=== PATIENT | male | born 1975 | race African-American/Black ===

== ENCOUNTER 2017-04-08 03:37 | Emergency (ER) | payer MEDICAID ==
[~2017-04-08] VITALS: Ht 182.9 cm; Wt 72.6 kg
[~2017-04-08 03:37] MED LIST: ACE325RS PR; ASCO500T11 PO; BACL20TA PO; BISA10SU45 RE; DOCU-94 PO; GABA600T PO; NOR10T PO; RANITAB8 PO; TOLT2TAB7 OR; ZINC220T3 PO; [UNRECOGNIZED DRUG - CODE] IV
[2017-04-08] MEDS ORDERED: SODIUM CHLORIDE 0.9% 1,000 ML IV ONE (07:25)
[2017-04-08] MEDS ORDERED: METOCLOPRAMIDE HCL 5MG/ml INJ 2ml VIAL IV ONE (07:30)
[2017-04-08] MEDS ORDERED: DIAZEPAM 5 MG/ML 2ML SYRG IV ONE (07:30)
[2017-04-08] MEDS ORDERED: KETOROLAC TROMETH 30 MG/ML 1ML VIAL IV ONE (07:30)
[2017-04-08 07:45] LABS: Basophils # (auto) 0.1 uL; Basophils % (auto) 1.7 % (0.0-2.0); CONDITION Y; Eosinophils # (auto) 0 uL; Eosinophils % (auto) 0.2 % (0.0-7.0); Hematocrit 43.6 % (41.0-53.0); Hemoglobin 14.6 g/dL (13.5-17.5); Lymphocytes % (auto) 26.7 % (10.0-50.0); Mean Corpuscular Hemoglobin 31.1 pg (28.0-32.0); Mean Corpuscular Hgb Conc. 33.5 g/dL (32.0-36.0); Mean Corpuscular Volume 92.7 fL (80.0-100.0); Mean Platelet Volume 9.4 fL (7.4-10.4); Monocytes # (auto) 0.6 uL; Monocytes % (auto) 7.3 % (0.0-12.0); Neutrophils # (auto) 4.9 uL; Neutrophils % (auto) 64.1 % (37.0-80.0); Platelet Count (auto) 249 10^3/uL (140-450); Red Cell Distribution Width 15.5 % (11.6-16.0); White Blood Cell 7.7 10^3/uL (4.4-10.8)
[2017-04-08 07:52] LABS: BUN/Creatinine Ratio 15.8; Calcium 8.8 mg/dL (8.5-10.1)
[2017-04-08 07:54] LABS: Bilirubin, Total 0.3 mg/dL (0.2-1.0); Total Protein 8.1 g/dL (6.4-8.2)
[2017-04-08 09:26] LABS: INR 1.05 (0.9-1.15); Prothrombin Time 11.4 sec (9.37-12.3)
[2017-04-08] MEDS ORDERED: DIAZEPAM 5 MG TAB PO ONE (09:45)
[2017-04-08] MEDS ORDERED: BACLOFEN 10 MG TAB PO ONE (09:45)
[2017-04-08 09:58] LABS: Urine Bilirubin Negative (Negative); Urine Blood Negative /uL (Negative); Urine Color Yellow (Yellow); Urine Glucose Normal (Normal); Urine Ketone Negative (Negative); Urine Mucus FEW (None Seen); Urine Nitrite Negative (Negative); Urine RBC 1 /hpf (0 - 3); Urine Squamous Epithelial Cell FEW /hpf (<5); Urine Urobilinogen Normal (Negative); Urine pH 6.5 (5.0-8.0)
[2017-04-08 10:53] VITALS: BP 113/49
== END 2017-04-08 12:19 | disposition home or self-care (01) ==
LOC: ER 03:37 → EDBD 03:37 → ER 12:19
DX: G82.20 Paraplegia, unspecified (principal); M79.1 Myalgia; F17.210 Nicotine dependence, cigarettes, uncomplicated
CPT/HCPCS: 36415; 71010; 80053; 81001; 83735; 84443; 84484; 85025; 85379; 85610; 93005; 94761; 96374; 96375; 99285; J1885; J2765; J7030

== ENCOUNTER 2017-05-21 21:05 | Emergency (ER) | payer MEDICAID ==
[~2017-05-21] VITALS: Ht 170.2 cm; Wt 77.1 kg
[2017-05-22] MEDS ORDERED: SODIUM CHLORIDE 0.9% 500 ML IV ONE (00:52)
[2017-05-22] MEDS ORDERED: HYDROmorphone HCL 2 MG/ML VL IV ONE ×2 (01:00→03:45)
[2017-05-22] MEDS ORDERED: ONDANSETRON HCL 4 MG/2 ML VIAL IV ONE (01:00)
[2017-05-22 03:08] LABS: Albumin 3.7 g/dL (3.4-5.0); Calcium 8.5 mg/dL (8.5-10.1); Potassium 3.8 mmol/L (3.5-5.1)
[2017-05-22 03:10] LABS: BUN/Creatinine Ratio 15.7
[2017-05-22 03:13] LABS: Bilirubin, Total 0.3 mg/dL (0.2-1.0); Total Protein 7.3 g/dL (6.4-8.2)
[2017-05-22 03:17] LABS: Basophils # (auto) 0 uL; Basophils % (auto) 0.3 % (0.0-2.0); Eosinophils # (auto) 0 uL; Eosinophils % (auto) 0.2 % (0.0-7.0); Hematocrit 42.3 % (41.0-53.0); Hemoglobin 14.1 g/dL (13.5-17.5); Lymphocytes % (auto) 24.9 % (10.0-50.0); Mean Corpuscular Hemoglobin 31.1 pg (28.0-32.0); Mean Corpuscular Hgb Conc. 33.4 g/dL (32.0-36.0); Mean Corpuscular Volume 93.2 fL (80.0-100.0); Mean Platelet Volume 9.7 fL (6.9-10.8); Monocytes # (auto) 0.7 uL; Monocytes % (auto) 8.3 % (0.0-12.0); Neutrophils # (auto) 5.4 uL; Neutrophils % (auto) 66.3 % (37.0-80.0); Platelet Count (auto) 197 10^3/uL (140-450); Red Cell Distribution Width 14.8 % (11.8-14.3); White Blood Cell 8.1 10^3/uL (4.4-10.8)
[2017-05-22] MEDS ORDERED: LORazepam 2MG/ML-1ML VIAL ONE (03:37)
[2017-05-22] MEDS ORDERED: HYDROmorphone HCL 2 MG/ML VL ONE (03:38)
[2017-05-22 03:40] LABS: Urine RBC None Seen /hpf (0 - 3)
[2017-05-22] MEDS ORDERED: LORazepam 2MG/ML-1ML VIAL IV ONE (03:45)
[2017-05-22 03:47] LABS: Urine Bilirubin Negative (Negative); Urine Blood Negative /uL (Negative); Urine Color Yellow (Yellow); Urine Glucose Normal (Normal); Urine Ketone 1+ (Negative); Urine Nitrite Negative (Negative); Urine Squamous Epithelial Cell FEW /hpf (<5); Urine Urobilinogen Normal (Negative); Urine pH 6.5 (5.0-8.0)
[2017-05-22 03:50] LABS: Amylase 61 U/L (25-115)
[2017-05-22 04:57] VITALS: BP 157/97
== END 2017-05-22 06:35 | disposition home or self-care (01) ==
LOC: EDBD 21:05 → ER 21:09
DX: N20.0 Calculus of kidney (principal); K59.00 Constipation, unspecified; F17.210 Nicotine dependence, cigarettes, uncomplicated; Z87.440 Personal history of urinary (tract) infections; Z79.899 Other long term (current) drug therapy
CPT/HCPCS: 36415; 74176; 80053; 81001; 82150; 83690; 85025; 93005; 96361; 96374; 96375; 96376; 99285; J1170; J2060; J2405; J7030

== ENCOUNTER 2017-05-24 02:51 | Emergency (ER) | payer MEDICAID ==
[~2017-05-24] VITALS: Ht 180.3 cm; Wt 77.1 kg
[2017-05-24 06:10] VITALS: BP 128/72
== END 2017-05-24 11:26 | disposition home or self-care (01) ==
LOC: EDBD 02:51 → ER 02:53
DX: L03.116 Cellulitis of left lower limb (principal); L03.115 Cellulitis of right lower limb; F17.210 Nicotine dependence, cigarettes, uncomplicated; M79.1 Myalgia; Z79.899 Other long term (current) drug therapy

== ENCOUNTER 2017-06-12 21:38 | Emergency (ER) | payer MEDICAID ==
[~2017-06-12] VITALS: Ht 182.9 cm; Wt 72.6 kg
[2017-06-12] MEDS ORDERED: HYDROmorphone HCL 2 MG/ML VL IV ONE ×2 (22:00→23:15)
[2017-06-12] MEDS ORDERED: ONDANSETRON HCL 4 MG/2 ML VIAL IV ONE ×2 (22:00→23:15)
[2017-06-12] MEDS ORDERED: SODIUM CHLORIDE 0.9% 1,000 ML IV ONE (22:12)
[2017-06-13 01:22] VITALS: BP 153/110
[2017-06-13] MEDS ORDERED: cloNIDine HCL 0.1 MG TAB PO ONE (01:30)
[2017-06-13] MEDS ORDERED: LORazepam 2MG/ML-1ML VIAL IV ONE ×2 (04:15→04:45)
== END 2017-06-13 05:38 | disposition home or self-care (01) ==
LOC: EDBD 21:38 → ER 21:38
DX: G82.20 Paraplegia, unspecified (principal); F41.9 Anxiety disorder, unspecified; F17.210 Nicotine dependence, cigarettes, uncomplicated; Z87.440 Personal history of urinary (tract) infections
CPT/HCPCS: 71010; 74176; 93005; 96361; 96374; 96375; 99285; J1170; J2405; J7030

== ENCOUNTER 2017-09-28 04:02 | Emergency (ER) | payer MEDICAID ==
[~2017-09-28] VITALS: Ht 167.6 cm; Wt 77.1 kg
[2017-09-28] MEDS ORDERED: cloNIDine HCL 0.1 MG TAB PO ONE (04:15)
[2017-09-28] MEDS ORDERED: LORazepam 0.5 MG TAB PO ONE (06:15)
[2017-09-28] MEDS ORDERED: hydrALAZINE HCL 10 MG TAB PO ONE (06:15)
[2017-09-28 06:36] VITALS: BP 179/98
[2017-09-28] MEDS ORDERED: NALBUPHINE HCL 10 MG/1ml INJECTION IM ONE (07:30)
== END 2017-09-28 11:09 | disposition home or self-care (01) ==
LOC: EDBD 04:02 → ER 04:08
DX: I10 Essential (primary) hypertension (principal); F17.210 Nicotine dependence, cigarettes, uncomplicated; F12.10 Cannabis abuse, uncomplicated; F15.10 Other stimulant abuse, uncomplicated; Z79.891 Long term (current) use of opiate analgesic; Z79.899 Other long term (current) drug therapy
CPT/HCPCS: 93005; 96372; 99283; J2300

== ENCOUNTER 2017-10-11 13:43 | Emergency (ER) | payer MEDICAID ==
[~2017-10-11] VITALS: Ht 167.6 cm; Wt 77.1 kg
[2017-10-11 14:00] VITALS: BP 166/90
[2017-10-11] MEDS ORDERED: HYDROcodone-ACET 10/325MG TAB PO ONE (15:00)
[2017-10-11] MEDS ORDERED: ALPRAZolam 0.5 MG TAB PO ONE (15:00)
== END 2017-10-11 15:22 | disposition home or self-care (01) ==
LOC: ER 13:43 → EDBD 13:43 → ER 15:22
DX: F41.9 Anxiety disorder, unspecified (principal); F15.10 Other stimulant abuse, uncomplicated; F17.210 Nicotine dependence, cigarettes, uncomplicated; Z79.899 Other long term (current) drug therapy; Z87.440 Personal history of urinary (tract) infections

== ENCOUNTER 2017-11-04 04:11 | Emergency (ER) | payer MEDICAID ==
[~2017-11-04] VITALS: Ht 182.9 cm; Wt 72.6 kg
[2017-11-04] MEDS ORDERED: ACETAMINOPHEN 325 MG TAB PO ONE ×2 (04:30→09:00)
[2017-11-04 05:20] LABS: Basophils # (auto) 0 uL; Basophils % (auto) 0.3 % (0.0-2.0); Eosinophils # (auto) 0 uL; Eosinophils % (auto) 0.1 % (0.0-7.0); Hematocrit 40.4 % (41.0-53.0); Hemoglobin 13.7 g/dL (13.5-17.5); Lymphocytes # (auto) 0.7 uL; Lymphocytes % (auto) 5.1 % (10.0-50.0); Mean Corpuscular Hemoglobin 31.6 pg (28.0-32.0); Mean Corpuscular Hgb Conc. 33.9 g/dL (32.0-36.0); Mean Corpuscular Volume 93.1 fL (80.0-100.0); Monocytes # (auto) 1.1 uL; Monocytes % (auto) 7.4 % (0.0-12.0); Neutrophils # (auto) 12.7 uL; Neutrophils % (auto) 87.1 % (37.0-80.0); Nucleated Red Blood Cells % 0.1 %; Platelet Count (auto) 148 10^3/uL (140-450); Red Blood Cells 4.34 10^6/uL (4.5-5.90); Red Cell Distribution Width 15.3 % (11.8-14.3); White Blood Cell 14.5 10^3/uL (4.4-10.8)
[2017-11-04 05:37] LABS: Urine Bacteria FEW /hpf (None Seen); Urine Blood Negative /uL (Negative); Urine Mucus FEW (None Seen); Urine Specific Gravity 1.043 (1.001-1.035); Urine WBC 23 /hpf (0 - 3)
[2017-11-04] MEDS ORDERED: ONDANSETRON HCL 4 MG/2 ML VIAL IV ONE (06:30)
[2017-11-04] MEDS ORDERED: NALBUPHINE HCL 10 MG/1ml INJECTION IV ONE (06:30)
[2017-11-04 06:34] LABS: Albumin 3.5 g/dL (3.4-5.0); BUN/Creatinine Ratio 15.2; Bilirubin, Total 0.5 mg/dL (0.2-1.0); Calcium 8.6 mg/dL (8.5-10.1); Magnesium 2.1 mg/dL (1.6-2.6); Total Protein 7.7 g/dL (6.4-8.2)
[2017-11-04 06:35] LABS: Potassium 4.6 mmol/L (3.5-5.1)
[2017-11-04] MEDS ORDERED: SODIUM CHLORIDE 0.9% 1,000 ML IV ONE (07:16)
[2017-11-04] MEDS ORDERED: PROMETHAZINE HCL 25 MG/ML 1ML IV PRN (07:30)
[2017-11-04] MEDS ORDERED: KETOROLAC TROMETH 30 MG/ML 1ML VIAL IV ONE (07:30)
[2017-11-04] MEDS ORDERED: cefTRIAXone 1GM/10ml IVPUSH 10 ML IV ONE (08:15)
[2017-11-04] MEDS ORDERED: LORazepam 2MG/ML-1ML VIAL IV ONE (13:30)
[2017-11-04] MEDS ORDERED: MORPHINE SULFATE 4 MG/ML SYR/VIAL IV ONE (13:30)
[2017-11-04 15:36] VITALS: BP 134/87
== END 2017-11-04 15:38 | disposition home or self-care (01) ==
LOC: EDBD 04:11 → ER 04:15
DX: N39.0 Urinary tract infection, site not specified (principal); K59.00 Constipation, unspecified; F11.23 Opioid dependence with withdrawal; G82.50 Quadriplegia, unspecified; M62.838 Other muscle spasm; F17.210 Nicotine dependence, cigarettes, uncomplicated; F12.10 Cannabis abuse, uncomplicated; F15.10 Other stimulant abuse, uncomplicated; E07.89 Other specified disorders of thyroid
CPT/HCPCS: 36415; 80053; 81001; 82150; 83690; 83735; 84443; 85025; 96374; 96375; 99285; J1885; J2060; J2270; J2300; J2405; J2550; J7030

== ENCOUNTER 2017-11-16 23:10 | Emergency (ER) | payer MEDICAID ==
[~2017-11-16] VITALS: Ht 182.9 cm; Wt 74.8 kg
[2017-11-16 23:58] LABS: Basophils # (auto) 0.1 uL; Basophils % (auto) 1.2 % (0.0-2.0); Eosinophils # (auto) 0 uL; Eosinophils % (auto) 0.5 % (0.0-7.0); Hematocrit 37.9 % (41.0-53.0); Hemoglobin 12.5 g/dL (13.5-17.5); Lymphocytes % (auto) 40.2 % (10.0-50.0); Monocytes # (auto) 0.3 uL; Monocytes % (auto) 5.9 % (0.0-12.0); Neutrophils # (auto) 2.5 uL; Neutrophils % (auto) 52.2 % (37.0-80.0); Nucleated Red Blood Cells % 0.1 %; Platelet Count (auto) 233 10^3/uL (140-450); Red Blood Cells 4.03 10^6/uL (4.5-5.90); Red Cell Distribution Width 14.8 % (11.8-14.3); White Blood Cell 4.9 10^3/uL (4.4-10.8)
[2017-11-17 00:12] LABS: Alanine Aminotransferase 34 U/L (16-61); Anion Gap 8 (5-15); Aspartate Aminotransferase 25 U/L (15-37); BUN/Creatinine Ratio 12.2; Blood Urea Nitrogen 10 mg/dL (7-18); Calcium 8.2 mg/dL (8.5-10.1); Carbon Dioxide 23 mmol/L (21-32); Chloride 111 mmol/L (98-107); GFR African American 133 mL/min; GFR Non-African American 110 mL/min; Glucose 146 mg/dL (74-106); Magnesium 2.3 mg/dL (1.6-2.6); Potassium 3.9 mmol/L (3.5-5.1); Sodium 142 mmol/L (136-145)
[2017-11-17 00:17] LABS: Alkaline Phosphatase 93 U/L (45-117); Bilirubin, Total 0.3 mg/dL (0.2-1.0); Total Protein 6.9 g/dL (6.4-8.2)
[2017-11-17] MEDS ORDERED: ONDANSETRON HCL 4 MG/2 ML VIAL IV ONE (00:30)
[2017-11-17] MEDS ORDERED: NALBUPHINE HCL 10 MG/1ml INJECTION IV ONE (00:30)
[2017-11-17 01:51] LABS: Urine Bacteria FEW /hpf (None Seen); Urine Blood Negative /uL (Negative); Urine Specific Gravity 1.013 (1.001-1.035); Urine WBC 4 /hpf (0 - 3)
[2017-11-17 03:35] VITALS: BP 122/84
== END 2017-11-17 04:47 | disposition home or self-care (01) ==
LOC: EDBD 23:10 → ER 23:10
DX: K29.00 Acute gastritis without bleeding (principal); G82.20 Paraplegia, unspecified; G89.4 Chronic pain syndrome; F17.210 Nicotine dependence, cigarettes, uncomplicated; Z87.440 Personal history of urinary (tract) infections
CPT/HCPCS: 36415; 71045; 74176; 80053; 81001; 83690; 83735; 84484; 85025; 93005; 96374; 96375; 99285; J2300; J2405

== ENCOUNTER 2018-01-04 08:41 | Inpatient (IN) | payer MEDICAID ==
[~2018-01-04] VITALS: Ht 182.9 cm; Wt 78.0 kg
[2018-01-04 09:48] LABS: Basophils # (auto) 0.1 uL; Eosinophils # (auto) 0.1 uL; Hemoglobin 12.8 g/dL (13.5-17.5); Mean Corpuscular Volume 94.8 fL (80.0-100.0); Monocytes # (auto) 0.5 uL; Neutrophils # (auto) 5.8 uL; White Blood Cell 7.6 10^3/uL (4.4-10.8)
[2018-01-04 09:52] LABS: Basophils % (auto) 0.9 % (0.0-2.0); Hematocrit 38.5 % (41.0-53.0); Lymphocytes # (auto) 1.2 uL; Lymphocytes % (auto) 15.5 % (10.0-50.0); Mean Corpuscular Hemoglobin 31.6 pg (28.0-32.0); Mean Corpuscular Hgb Conc. 33.3 g/dL (32.0-36.0); Neutrophils % (auto) 76.6 % (37.0-80.0); Nucleated Red Blood Cells % 0.1 %; Platelet Count (auto) 458 10^3/uL (140-450); Red Blood Cells 4.06 10^6/uL (4.5-5.90); Red Cell Distribution Width 14.5 % (11.8-14.3)
[2018-01-04 10:06] LABS: Albumin 3.8 g/dL (3.4-5.0); BUN/Creatinine Ratio 14.9; Calcium 9.6 mg/dL (8.5-10.1); Potassium 4.1 mmol/L (3.5-5.1)
[2018-01-04 10:09] LABS: Bilirubin, Total 0.3 mg/dL (0.2-1.0); Total Protein 8.8 g/dL (6.4-8.2)
[2018-01-04 10:10] LABS: INR 1.03 (0.9-1.15); Prothrombin Time 11.2 sec (9.37-12.3)
[2018-01-04] MEDS ORDERED: MORPHINE SULFATE 4 MG/ML SYR/VIAL IV PRN ×2 (12:00)
[2018-01-04] MEDS ORDERED: ACETAMINOPHEN 500 MG TAB PO PRN (12:00)
[2018-01-04] MEDS ORDERED: PROMETHAZINE HCL 25 MG/ML 1ML IV PRN (12:00)
[2018-01-04] MEDS ORDERED: TEMAZEPAM 15 MG CAP PO PRN (12:00)
[2018-01-04] MEDS ORDERED: cefTRIAXone 1GM/10ml IVPUSH 10 ML IV ONE (12:00)
[2018-01-04] MEDS ORDERED: NITROGLYCERIN 0.4 MG SL TAB SL PRN (12:00)
[2018-01-04] MEDS ORDERED: PANTOPRAZOLE 40 MG TAB PO ONE (12:30)
[2018-01-04 12:34] LABS: Hemoglobin 11.3 g/dL (13.5-17.5)
[2018-01-04] MEDS: metroNIDAZOLE 500MG/100ML 100 ML IV SCH ×2 (12:42→17:27)
[2018-01-04] MEDS: SODIUM CHLORIDE 0.9% 1,000 ML IV SCH ×2 (12:43→19:59)
[2018-01-04 14:25] LABS: Urine Bacteria FEW /hpf (None Seen); Urine Blood 2+ /uL (Negative); Urine Specific Gravity 1.028 (1.001-1.035); Urine WBC 4 /hpf (0 - 3)
[2018-01-04 17:00] VITALS: BP 122/71
[2018-01-04] MEDS ORDERED: FAMO-12 PO (17:37)
[2018-01-04] MEDS ORDERED: ALPR-229 PO (17:37)
[2018-01-04] MEDS ORDERED: NITR-52 PO (17:37)
[2018-01-04] MEDS ORDERED: DABI150C PO (17:37)
[2018-01-04] MEDS ORDERED: PRO20T PO (17:37)
[2018-01-04] MEDS ORDERED: LOPERAMIDE HCL 2 MG CAP PO PRN (17:45)
[2018-01-04 18:10] VITALS: BP 122/71
[2018-01-04] MEDS: MORPHINE SULFATE 8mg/ml INJ SDV IV PRN ×2 (18:54→23:04)
[2018-01-04 20:00] VITALS: BP 103/57
[2018-01-04 21:58] VITALS: BP 103/57
[2018-01-05] MEDS: HYDROcodone-ACET 5/325MG TAB PO PRN ×3 (01:03→17:05)
[2018-01-05] MEDS: LORazepam 0.5 MG TAB PO PRN ×2 (01:03→17:10)
[2018-01-05] MEDS: SODIUM CHLORIDE 0.9% 1,000 ML IV SCH ×3 (03:34→19:56)
[2018-01-05 04:33] VITALS: BP 138/70
[2018-01-05] MEDS: metroNIDAZOLE 500MG/100ML 100 ML IV SCH ×5 (06:07→23:58)
[2018-01-05] MEDS ORDERED: cefTRIAXone 1GM/10ml IVPUSH 10 ML IV SCH (09:00)
[2018-01-05 09:06] VITALS: BP 150/96
[2018-01-05] MEDS ORDERED: PANTOPRAZOLE 40 MG TAB PO SCH (10:00)
[2018-01-05] MEDS: DABIGATRAN 75 MG CAP PO SCH ×2 (11:55→21:27)
[2018-01-05] MEDS: BACLOFEN 10 MG TAB PO SCH ×2 (11:58→21:28)
[2018-01-05] MEDS: MORPHINE SULFATE 8mg/ml INJ SDV IV PRN ×2 (12:51→22:39)
[2018-01-05 13:00] VITALS: BP 150/114
[2018-01-05] MEDS ORDERED: ONDANSETRON HCL 4 MG/2 ML VIAL IV PRN (13:00)
[2018-01-05] MEDS ORDERED: ZINC SULFATE 220 MG CAP PO ONE (13:00)
[2018-01-05] MEDS ORDERED: ASCORBIC ACID 500 MG TAB PO ONE (13:00)
[2018-01-05] MEDS ORDERED: FAMOTIDINE 20 MG TAB PO ONE (13:00)
[2018-01-05] MEDS ORDERED: PROPRANOLOL HCL 20 MG TAB PO ONE (13:00)
[2018-01-05] MEDS: GABAPENTIN 300 MG CAP PO SCH ×2 (13:24→21:27)
[2018-01-05 14:49] LABS: Urine Bacteria NONE SEEN /hpf (None Seen); Urine Blood Negative /uL (Negative); Urine Mucus FEW (None Seen); Urine Specific Gravity 1.016 (1.001-1.035); Urine WBC <1 /hpf (0 - 3)
[2018-01-05 16:52] VITALS: BP 142/98
[2018-01-05 22:00] VITALS: BP 148/94
[2018-01-05] MEDS ORDERED: PROPRANOLOL HCL 20 MG TAB PO SCH (22:00)
[2018-01-05] MEDS ORDERED: FAMOTIDINE 20 MG TAB PO SCH (22:00)
[2018-01-06] MEDS: HYDROcodone-ACET 5/325MG TAB PO PRN (01:55)
[2018-01-06] MEDS: MORPHINE SULFATE 8mg/ml INJ SDV IV PRN (03:20)
[2018-01-06] MEDS: SODIUM CHLORIDE 0.9% 1,000 ML IV SCH (03:26)
[2018-01-06] MEDS: LORazepam 0.5 MG TAB PO PRN (04:31)
[2018-01-06 05:00] VITALS: BP 137/75
[2018-01-06] MEDS: BACLOFEN 10 MG TAB PO SCH (05:39)
[2018-01-06] MEDS: GABAPENTIN 300 MG CAP PO SCH (05:39)
[2018-01-06] MEDS: metroNIDAZOLE 500MG/100ML 100 ML IV SCH (05:40)
[2018-01-06 07:53] LABS: BUN/Creatinine Ratio 8.3; Calcium 8.7 mg/dL (8.5-10.1); Potassium 3.7 mmol/L (3.5-5.1)
[2018-01-06] MEDS ORDERED: ASCORBIC ACID 500 MG TAB PO SCH (10:00)
[2018-01-06] MEDS ORDERED: ZINC SULFATE 220 MG CAP PO SCH (10:00)
== END 2018-01-06 08:38 | disposition home or self-care (01) | DRG 466 ==
LOC: ER 08:41 → EDBD 08:41 → TELE 08:42 → TELE-CENTR 17:03
PROVIDERS: ADMIT Internal Medicine; ATTEND Internal Medicine
DX: T83.83XA Hemorrhage due to genitourinary prosthetic devices, implants and grafts, initial encounter (principal); G82.20 Paraplegia, unspecified; K64.9 Unspecified hemorrhoids; F17.210 Nicotine dependence, cigarettes, uncomplicated; M51.84 Other intervertebral disc disorders, thoracic region; K62.5 Hemorrhage of anus and rectum; Y84.6 Urinary catheterization as the cause of abnormal reaction of the patient, or of later complication, without mention of misadventure at the time of the procedure; F32.9 Major depressive disorder, single episode, unspecified; F41.9 Anxiety disorder, unspecified; R31.0 Gross hematuria; M48.02 Spinal stenosis, cervical region; Z79.899 Other long term (current) drug therapy; Y92.89 Other specified places as the place of occurrence of the external cause
CPT/HCPCS: 36415; 76775; 80048; 80053; 81001; 82270; 85014; 85018; 85025; 85045; 85610; 87081; 87086; 87493; 93005; 96361; 96374; 96375; J2270; J3490

== ENCOUNTER 2018-01-19 22:58 | Emergency (ER) | payer MEDICAID ==
[~2018-01-19] VITALS: Ht 172.7 cm; Wt 70.3 kg
[~2018-01-19 22:58] MED LIST changes: +ALPR-229 PO; +DABI150C PO; +FAMO-12 PO; +NITR-52 PO; +PRO20T PO
[2018-01-20] MEDS ORDERED: IBUPROFEN 600 MG TAB PO ONE ×2 (00:44→00:45)
[2018-01-20 01:28] LABS: Urine Bacteria NONE SEEN /hpf (None Seen); Urine Blood Negative /uL (Negative); Urine Hyaline Cast MOD /lpf (0 - 2); Urine Mucus FEW (None Seen); Urine Specific Gravity 1.027 (1.001-1.035); Urine WBC 22 /hpf (0 - 3)
[2018-01-20 01:41] LABS: Alcohol, Urine < 3.0 mg/dL (0-5); Amphetamine Screen, Urine POSITIVE (NEGATIVE); Barbiturate Scree,Urine NEGATIVE (NEGATIVE); Benzodiazephine Screen, Urine NEGATIVE (NEGATIVE); Cannabinoid Screen, Urine POSITIVE (NEGATIVE); Cocaine Screen, Urine NEGATIVE (NEGATIVE); Opiate Scree,Urine NEGATIVE (NEGATIVE); Phencyclidine Screen, Urine NEGATIVE (NEGATIVE)
[2018-01-20 02:17] LABS: Albumin 4.1 g/dL (3.4-5.0); Amylase 63 U/L (25-115); Anion Gap 16 (5-15); Blood Urea Nitrogen 11 mg/dL (7-18); Calcium 9.4 mg/dL (8.5-10.1); Carbon Dioxide 20 mmol/L (21-32); Chloride 106 mmol/L (98-107); Glucose 130 mg/dL (74-106); Lipase 104 U/L (73-393); Potassium 3.2 mmol/L (3.5-5.1); Sodium 142 mmol/L (136-145)
[2018-01-20 02:19] LABS: Alanine Aminotransferase 28 U/L (16-61); Aspartate Aminotransferase 24 U/L (15-37); BUN/Creatinine Ratio 11.7; GFR African American 114 mL/min; GFR Non-African American 94 mL/min
[2018-01-20 02:33] LABS: Alkaline Phosphatase 118 U/L (45-117); Bilirubin, Total 0.4 mg/dL (0.2-1.0); Total Protein 9.4 g/dL (6.4-8.2)
[2018-01-20 03:01] LABS: Basophils # (auto) 0 uL; Basophils % (auto) 0.2 % (0.0-2.0); Eosinophils # (auto) 0 uL; Hematocrit 41.5 % (41.0-53.0); Hemoglobin 13.4 g/dL (13.5-17.5); Lymphocytes # (auto) 3.2 uL; Lymphocytes % (auto) 26.2 % (10.0-50.0); Mean Corpuscular Hgb Conc. 32.4 g/dL (32.0-36.0); Mean Corpuscular Volume 92.6 fL (80.0-100.0); Monocytes # (auto) 0.9 uL; Neutrophils # (auto) 8.1 uL; Neutrophils % (auto) 66.6 % (37.0-80.0); Nucleated Red Blood Cells % 0.1 %; Platelet Count (auto) 253 10^3/uL (140-450); Red Blood Cells 4.48 10^6/uL (4.5-5.90); Red Cell Distribution Width 14.7 % (11.8-14.3); White Blood Cell 12.2 10^3/uL (4.4-10.8)
[2018-01-20] MEDS ORDERED: SODIUM CHLORIDE 0.9% 1,000 ML IV ONE (03:30)
[2018-01-20] MEDS ORDERED: metroNIDAZOLE 500MG/100ML 100 ML IV ONE (03:30)
[2018-01-20] MEDS ORDERED: cefTRIAXone 1GM/10ml IVPUSH 10 ML IV ONE (03:30)
[2018-01-20] MEDS ORDERED: NALBUPHINE HCL 10 MG/1ml INJECTION IV ONE (03:30)
[2018-01-20 05:40] VITALS: BP 159/82
== END 2018-01-20 05:53 | disposition home or self-care (01) ==
LOC: ER 22:58 → EDBD 22:58 → ER 01-20 05:53
DX: K52.9 Noninfective gastroenteritis and colitis, unspecified (principal); F12.10 Cannabis abuse, uncomplicated; F15.10 Other stimulant abuse, uncomplicated; F17.210 Nicotine dependence, cigarettes, uncomplicated; F32.9 Major depressive disorder, single episode, unspecified; F41.9 Anxiety disorder, unspecified; Z79.01 Long term (current) use of anticoagulants
CPT/HCPCS: 36415; 74176; 80053; 80307; 81001; 82150; 83690; 84484; 85025; 96365; 96375; 99285; J2300; J3490

== ENCOUNTER 2018-12-14 14:28 | Emergency (ER) | payer MEDICAID ==
[~2018-12-14] VITALS: Ht 182.9 cm; Wt 72.6 kg
[~2018-12-14 14:28] MED LIST changes: -ACE325RS PR; -ALPR-229 PO; -BISA10SU45 RE; -DABI150C PO; -FAMO-12 PO; +LEVO25TA49 PO; +MORP60TA25 PO; -NITR-52 PO; -NOR10T PO; +ONDA4TAB5 PO; +OXY5T PO; -RANITAB8 PO; -TOLT2TAB7 OR; -[UNRECOGNIZED DRUG - CODE] IV
[2018-12-14 15:16] LABS: Basophils # (auto) 0 uL; Basophils % (auto) 0.4 % (0.0-2.0); Eosinophils # (auto) 0 uL; Eosinophils % (auto) 0.4 % (0.0-7.0); Hematocrit 46.3 % (41.0-53.0); Hemoglobin 15.4 g/dL (13.5-17.5); Lymphocytes # (auto) 1.7 uL; Lymphocytes % (auto) 25.6 % (10.0-50.0); Mean Corpuscular Hemoglobin 31.2 pg (28.0-32.0); Mean Corpuscular Hgb Conc. 33.2 g/dL (32.0-36.0); Mean Corpuscular Volume 94.2 fL (80.0-100.0); Monocytes # (auto) 0.5 uL; Monocytes % (auto) 7.6 % (0.0-12.0); Neutrophils # (auto) 4.4 uL; Nucleated Red Blood Cells % 0.2 %; Platelet Count (auto) 190 10^3/uL (140-450); Red Blood Cells 4.92 10^6/uL (4.5-5.90); White Blood Cell 6.6 10^3/uL (4.4-10.8)
[2018-12-14 15:34] LABS: Calcium 8.7 mg/dL (8.5-10.1); Potassium 3.6 mmol/L (3.5-5.1)
[2018-12-14 15:38] LABS: BUN/Creatinine Ratio 15.7; Bilirubin, Total 0.5 mg/dL (0.2-1.0); Total Protein 7.8 g/dL (6.4-8.2)
[2018-12-14] MEDS ORDERED: SODIUM CHLORIDE 0.9% 500 ML IVB ONE (16:29)
[2018-12-14] MEDS ORDERED: SODIUM CHLORIDE 0.9% 1,000 ML IV ONE (16:29)
[2018-12-14] MEDS ORDERED: BACLOFEN 10 MG TAB PO ONE (17:00)
[2018-12-14] MEDS ORDERED: DIAZEPAM 5 MG/ML 2ML SYRG IV ONE (17:00)
[2018-12-14] MEDS ORDERED: LORazepam 2MG/ML-1ML VIAL ONE (17:26)
[2018-12-14 17:29] LABS: Lipase 65 U/L (73-393)
[2018-12-14 17:35] LABS: Creatine Kinase IFCC 988 U/L (39-308)
[2018-12-14] MEDS ORDERED: LORazepam 2MG/ML-1ML VIAL IV ONE (17:45)
[2018-12-14] MEDS ORDERED: SODIUM CHLORIDE 0.9% 1,000 ML IVB ONE ×2 (18:29→18:33)
[2018-12-14] MEDS ORDERED: HYDROmorphone HCL 2 MG/ML VL IV ONE (19:00)
[2018-12-14 19:20] LABS: Alcohol, Urine < 3.0 mg/dL (0-5); Amphetamine Screen, Urine NEGATIVE (NEGATIVE); Barbiturate Scree,Urine NEGATIVE (NEGATIVE); Benzodiazephine Screen, Urine POSITIVE (NEGATIVE); Cannabinoid Screen, Urine POSITIVE (NEGATIVE); Cocaine Screen, Urine NEGATIVE (NEGATIVE); Opiate Scree,Urine NEGATIVE (NEGATIVE); Phencyclidine Screen, Urine NEGATIVE (NEGATIVE)
[2018-12-14 19:29] LABS: Urine Bacteria FEW /hpf (None Seen); Urine Blood Negative /uL (Negative); Urine Specific Gravity 1.014 (1.001-1.035); Urine WBC 3 /hpf (0 - 3)
[2018-12-15 00:52] VITALS: BP 132/90
== END 2018-12-15 01:57 | disposition home or self-care (01) ==
LOC: ER 14:31
DX: G82.20 Paraplegia, unspecified (principal); R10.84 Generalized abdominal pain; M54.9 Dorsalgia, unspecified; M62.82 Rhabdomyolysis; F17.210 Nicotine dependence, cigarettes, uncomplicated; Z79.899 Other long term (current) drug therapy
CPT/HCPCS: 36415; 80053; 80307; 81001; 82550; 83690; 83735; 84443; 85025; 96374; 96375; 99283; J1170; J2060; J7030; J7040

== ENCOUNTER 2019-04-01 20:22 | Emergency (ER) | payer MEDICAID ==
[~2019-04-01] VITALS: Ht 167.6 cm; Wt 59.0 kg
[~2019-04-01 20:22] MED LIST changes: +ONDA-144 PO; -ONDA4TAB5 PO
[2019-04-01] MEDS ORDERED: DIAZEPAM 5 MG TAB PO ONE (23:00)
[2019-04-01 23:33] LABS: Basophils # (auto) 0.1 uL; Basophils % (auto) 0.5 % (0.0-2.0); Eosinophils # (auto) 0 uL; Hematocrit 46.4 % (41.0-53.0); Hemoglobin 15.4 g/dL (13.5-17.5); Lymphocytes # (auto) 2.2 uL; Lymphocytes % (auto) 16.6 % (10.0-50.0); Mean Corpuscular Hemoglobin 30.4 pg (28.0-32.0); Mean Corpuscular Hgb Conc. 33.2 g/dL (32.0-36.0); Mean Corpuscular Volume 91.8 fL (80.0-100.0); Monocytes # (auto) 0.9 uL; Monocytes % (auto) 6.5 % (0.0-12.0); Neutrophils # (auto) 10.1 uL; Neutrophils % (auto) 76.4 % (37.0-80.0); Platelet Count (auto) 205 10^3/uL (140-450); Red Blood Cells 5.05 10^6/uL (4.5-5.90); Red Cell Distribution Width 15.6 % (11.8-14.3); White Blood Cell 13.3 10^3/uL (4.4-10.8)
[2019-04-01 23:58] LABS: Potassium 3.8 mmol/L (3.5-5.1)
[2019-04-02 00:01] LABS: Albumin 4.2 g/dL (3.4-5.0); BUN/Creatinine Ratio 18.4; Calcium 9.3 mg/dL (8.5-10.1)
[2019-04-02 00:03] LABS: Bilirubin, Total 0.9 mg/dL (0.2-1.0); Total Protein 8.4 g/dL (6.4-8.2)
[2019-04-02 00:38] VITALS: BP 112/76
[2019-04-02] MEDS ORDERED: HYDROcodone-ACET 5/325MG TAB PO ONE (01:30)
== END 2019-04-02 01:25 | disposition home or self-care (01) ==
LOC: EDBD 20:22 → ER 20:28
DX: M62.838 Other muscle spasm (principal); M79.662 Pain in left lower leg; M79.661 Pain in right lower leg; N39.0 Urinary tract infection, site not specified; G82.20 Paraplegia, unspecified; G89.4 Chronic pain syndrome; F19.20 Other psychoactive substance dependence, uncomplicated; E07.9 Disorder of thyroid, unspecified; F17.210 Nicotine dependence, cigarettes, uncomplicated; F12.90 Cannabis use, unspecified, uncomplicated
CPT/HCPCS: 36415; 80053; 85025

== ENCOUNTER 2019-06-15 15:51 | Emergency (ER) | payer MEDICAID ==
[~2019-06-15] VITALS: Ht 165.1 cm; Wt 54.4 kg
[2019-06-15 16:05] VITALS: BP 110/53
== END 2019-06-15 18:48 | disposition left against medical advice (07) ==
LOC: ER 15:51
DX: R07.9 Chest pain, unspecified (principal); F17.210 Nicotine dependence, cigarettes, uncomplicated; F12.10 Cannabis abuse, uncomplicated; Z53.29 Procedure and treatment not carried out because of patient's decision for other reasons
CPT/HCPCS: 93005

== ENCOUNTER 2019-09-16 22:37 | Emergency (ER) | payer MEDICAID ==
[~2019-09-16] VITALS: Ht 182.9 cm; Wt 77.1 kg
[~2019-09-16 22:37] MED LIST changes: +MORP1TAB14 PO; -MORP60TA25 PO
[2019-09-16 23:03] VITALS: BP 175/121
== END 2019-09-17 00:02 | disposition left against medical advice (07) ==
LOC: EDBD 22:37 → ER 22:40
DX: M54.9 Dorsalgia, unspecified (principal); Z53.21 Procedure and treatment not carried out due to patient leaving prior to being seen by health care provider

== ENCOUNTER 2019-09-17 01:01 | Emergency (ER) | payer MEDICAID ==
[~2019-09-17] VITALS: Ht 182.9 cm; Wt 77.1 kg
[2019-09-17 01:01] VITALS: BP 162/102
[2019-09-17 02:26] LABS: Basophils # (auto) 0 uL; Basophils % (auto) 0.5 % (0.0-2.0); Eosinophils # (auto) 0 uL; Eosinophils % (auto) 0.5 % (0.0-7.0); Hematocrit 45.1 % (41.0-53.0); Hemoglobin 14.5 g/dL (13.5-17.5); Lymphocytes # (auto) 1.8 uL; Lymphocytes % (auto) 30.8 % (10.0-50.0); Mean Corpuscular Hemoglobin 30.7 pg (28.0-32.0); Mean Corpuscular Hgb Conc. 32.2 g/dL (32.0-36.0); Mean Corpuscular Volume 95.4 fL (80.0-100.0); Monocytes # (auto) 0.3 uL; Monocytes % (auto) 4.8 % (0.0-12.0); Neutrophils # (auto) 3.6 uL; Neutrophils % (auto) 63.4 % (37.0-80.0); Nucleated Red Blood Cells % 0.1 %; Platelet Count (auto) 173 10^3/uL (140-450); Red Blood Cells 4.73 10^6/uL (4.5-5.90); Red Cell Distribution Width 15.4 % (11.8-14.3); White Blood Cell 5.7 10^3/uL (4.4-10.8)
[2019-09-17 02:45] LABS: Alanine Aminotransferase 40 U/L (16-61); Albumin 3.6 g/dL (3.4-5.0); Anion Gap 10 (5-15); Aspartate Aminotransferase 33 U/L (15-37); BUN/Creatinine Ratio 37.5; Blood Urea Nitrogen 24 mg/dL (7-18); Calcium 8.7 mg/dL (8.5-10.1); Carbon Dioxide 20 mmol/L (21-32); Chloride 107 mmol/L (98-107); GFR African American 176 mL/min; GFR Non-African American 145 mL/min; Glucose 83 mg/dL (74-106); Potassium 4.3 mmol/L (3.5-5.1); Sodium 137 mmol/L (136-145)
[2019-09-17 02:47] LABS: Alkaline Phosphatase 101 U/L (45-117); Bilirubin, Total 0.2 mg/dL (0.2-1.0); Total Protein 8.6 g/dL (6.4-8.2)
== END 2019-09-17 05:05 | disposition left against medical advice (07) ==
LOC: ER 01:05
DX: F41.9 Anxiety disorder, unspecified (principal); Z53.21 Procedure and treatment not carried out due to patient leaving prior to being seen by health care provider
CPT/HCPCS: 36415; 80053; 84484; 85025; 93005